=== PATIENT | male | born 1975 | race Caucasian/White ===

== ENCOUNTER 2022-04-28 17:44 | Outpatient (CLI) | payer SELFPAY | END 2022-04-28 17:45 | disposition home or self-care (01) | PROVIDERS: PCP Physician Assistant Medical; Visit Provider Nurse Practitioner Family | DX: L98.9 Disorder of the skin and subcutaneous tissue, unspecified (principal) | CPT/HCPCS: 87070; 87077; 87186 ==

== ENCOUNTER 2022-09-19 14:38 | Emergency (ER) | payer SELFPAY ==
[2022-09-19 14:56] VITALS: BP 139/87; PULSE 80; RESP 16; TEMP 37.4; O2SAT 97; BMI 39.1
--- NOTE | 2022-09-19 15:04 | ED.GENADULT ---
HPI - General Adult General Time Seen by Provider: 15:04 Date Seen: 09/19/22 Chief complaint: Abdominal Pain Stated complaint: Diverticulitis Time Seen by Provider: 09/19/22 14:41 Source: patient and RN notes reviewed Mode of arrival: ambulatory Limitations: no limitations History of Present Illness HPI narrative: Patient is a very pleasant 47-year-old male coming in with concern of diverticulitis. He has symptoms consistent with an episode of diverticulitis he had in 2019. In review of his chart in August of 2020, had a CT scan showing 2 separate focal areas of uncomplicated acute diverticulitis. He had 1 area in the mid transverse colon and 1 in the sigmoid colon. He states he had a colonoscopy after that and they did find pre cancerous polyps. He is scheduled to have another colonoscopy this October. He has had about a week of symptoms where he has had lower abdominal pain some bloating. He has had softer stools that seemed to be changed in color but no blood. He had the same symptoms with his episode in 2019. He has had no fevers or chills. No nausea or vomiting, no change in appetite. He does not have insurance at this time and would like to minimize his cost. He is hoping to get on antibiotics. Related Data Home Medications Medication Instructions Recorded Confirmed amlodipine 5 mg tablet mg PO DAILY 04/25/22 09/19/22 atorvastatin 10 mg tablet mg PO .Bedtime 04/25/22 09/19/22 lisinopril 20 1 tab PO DAILY 04/25/22 09/19/22 mg-hydrochlorothiazide 12.5 mg tablet Previous Rx's Medication Instructions Recorded doxycycline hyclate 100 mg capsule 100 mg PO BID #60 caps 05/02/22 amoxicillin 875 mg-potassium 1 tab PO BID 10 days #20 tabs 09/19/22 clavulanate 125 mg tablet Allergies Allergy/AdvReac Type Severity Reaction Status Date / Time No Known Allergies Allergy Unknown Verified 09/19/22 14:09 Review of Systems Status of ROS: Reports: 6 or more systems reviewed and unremarkable except as noted in History and below [facility] Medical History (Updated 09/19/22 @ 15:25 by Pamella Miller MD) Skin infection Family History (Updated 03/27/22 @ 13:24 by Uriel Pyle) Sister Alcoholism Father Diabetes Paternal Grandmother Liver cancer Lung cancer Aunt Lung cancer Social History (Updated 03/27/22 @ 13:25 by Uriel Pyle) Narrative: alcohol abuse- practicing sobriety- reported 01/31/21 tobacco use Smoking Status: Never smoker Exam Const: Vital Signs, click to edit/add: Vital Signs - 24 hr 09/19/22 14:56 Temperature 99.4 F Pulse Rate [Left P ulse Oximeter] 80 Respiratory Rate 16 Blood Pressure [Le ft Upper Arm] 139/87 Pulse Oximetry 97 Oxygen Delivery Me thod Room Air Documenting provider has reviewed patient's vital signs: yes Common normals: no apparent distress, oriented x3, no limitations, healthy appearing and alert General appearance: cooperative, comfortable and well kempt Nutritional appearance: overweight HENMT: Common normals: normocephalic, head/scalp atraumatic and hearing grossly normal bilaterally Head and scalp: normocephalic and atraumatic Eye: Common normals: PERRL, EOMs intact bilaterally, conjunctivae normal and no scleral icterus Conjunctiva: conjunctiva(e) normal Pupil: PERRL Resp: Common normals: normal respiratory effort, no retractions, no use of accessory muscles and clear to auscultation bilaterally Auscultation: clear to auscultation bilaterally Cardio: Common normals: regular rate, regular rhythm, S1 normal heart sound, S2 normal heart sound, no gallops, no clicks and no murmurs Rate: regular rate Rhythm: regular rhythm Heart sounds: S1 normal and S2 normal GI: Common normals: Normal to inspection, nondistended, normoactive bowel sounds present, soft to palpation, non-tender, no hepatosplenomegaly and no masses Palpation: soft and no hepatosplenomegaly Neuro: Common normals: oriented x3 Sensorium/orientation: alert Psych: Appearance: well kempt Course Course Hospital Course: Reviewed with patient normal workup would be laboratory evaluation and consideration of CT scan. He really feels that this is consistent with diverticulitis. Would like to forego any labs. He reassures me that if he is not improving on antibiotics or has worsening, would definitely follow up. Thus, am inclined to minimize his cost of the visit and treat for diverticulitis. Patient understands diagnosis may not be accurate with basing this on and clinical examination. Vital Signs Vital signs: Initial Vital Signs Temperature 99.4 F 09/19/22 14:56 Temperature Source Temporal Artery Scan 09/19/22 14:56 Pulse Rate 80 09/19/22 14:56 Pulse Rhythm Irregularly Irregular 09/19/22 14:56 Respiratory Rate 16 09/19/22 14:56 Blood Pressure 139/87 09/19/22 14:56 Blood Pressure Mean 104 09/19/22 14:56 Blood Pressure Position Sitting 09/19/22 14:56 Pulse Oximetry 97 09/19/22 14:56 Oxygen Delivery Method 09/19/22 14:56 Vital Signs Temperature 99.4 F 09/19/22 14:56 Pulse Rate 80 09/19/22 14:56 Respiratory Rate 16 09/19/22 14:56 Blood Pressure 139/87 09/19/22 14:56 Pulse Oximetry 97 09/19/22 14:56 Oxygen Delivery Method 09/19/22 14:56 Temperature 99.4 F 09/19/22 14:56 Pulse Rate 80 09/19/22 14:56 Respiratory Rate 16 09/19/22 14:56 Blood Pressure 139/87 09/19/22 14:56 Pulse Oximetry 97 09/19/22 14:56 Oxygen Delivery Method 09/19/22 14:56 Critical Care Time Critical Care Time Critical Care Time: No Discharge Plan Discharge Clinical Impression: Diverticulitis Patient Disposition: Home, Self-Care Condition: Stable Instructions: Diverticulitis (ED), Diverticulitis Diet (ED) Additional Instructions: Start oral antibiotics and take as prescribed. Follow handout for dietary recommendations. Would recommend doing clear liquids for 1-2 days and then advancing diet as tolerated. If you are not improving over the next week,, are worsening at any point with fevers, severe abdominal pain, vomiting or blood in stool, need to be re-evaluated. Activity Level: Activity as Tolerated Prescriptions: New amoxicillin-pot clavulanate 875-125 mg tablet 1 tab PO BID 10 Days Qty: 20 0RF No Action atorvastatin 10 mg tablet PO .Bedtime lisinopril-hydrochlorothiazide 20-12.5 mg tablet 1 tab PO DAILY amlodipine 5 mg tablet PO DAILY Rx Instructions: for high blood pressure doxycycline hyclate 100 mg capsule 100 mg PO BID Qty: 60 2RF Follow Up/Referrals: Cassi Proctor PA-C [Primary Care Provider] - Stand Alone Forms: ufindads Info Instructions
== END 2022-09-19 15:48 | disposition home or self-care (01) ==
LOC: ED 15:43
PROVIDERS: Emergency Provider Family Medicine; PCP Physician Assistant Medical
DX: K57.92 Diverticulitis of intestine, part unspecified, without perforation or abscess without bleeding (principal)
CPT/HCPCS: 99283

== ENCOUNTER 2023-07-04 13:46 | Outpatient (CLI) | payer OTHER, SELFPAY | END 2023-07-04 13:47 | disposition home or self-care (01) | PROVIDERS: PCP Physician Assistant Medical; Referring Provider Physician Assistant Medical; Visit Provider Physician Assistant Medical | DX: Z00.00 Encounter for general adult medical examination without abnormal findings (principal); E78.5 Hyperlipidemia, unspecified; I10 Essential (primary) hypertension; R79.89 Other specified abnormal findings of blood chemistry; Z72.0 Tobacco use | CPT/HCPCS: 80053; 80061 ==

== ENCOUNTER 2023-09-08 12:30 | Outpatient (REF) | payer OTHER, SELFPAY | END 2023-09-08 12:31 | disposition home or self-care (01) | LOC: NFLDREF 12:30 | PROVIDERS: PCP Physician Assistant Medical; Referring Provider Physician Assistant Medical; Visit Provider Family Medicine | DX: L02.32 Furuncle of buttock (principal) | CPT/HCPCS: 87081 ==

== ENCOUNTER 2024-09-08 13:28 | Outpatient (CLI) | payer OTHER, SELFPAY | END 2024-09-08 13:29 | disposition home or self-care (01) | LOC: NFLDREF 09-10 10:22 | PROVIDERS: PCP Physician Assistant Medical; Referring Provider Physician Assistant Medical; Visit Provider Physician Assistant Medical | DX: I10 Essential (primary) hypertension (principal); R79.89 Other specified abnormal findings of blood chemistry; E83.52 Hypercalcemia; E78.5 Hyperlipidemia, unspecified; L30.9 Dermatitis, unspecified; Z11.59 Encounter for screening for other viral diseases; Z11.3 Encounter for screening for infections with a predominantly sexual mode of transmission | CPT/HCPCS: 80053; 80061; 84443; 86703; 86803 ==

== ENCOUNTER 2024-09-23 08:52 | Outpatient (CLI) | payer OTHER, SELFPAY | END 2024-09-23 08:53 | disposition home or self-care (01) | LOC: NFLDREF 09-25 11:48 | PROVIDERS: PCP Physician Assistant Medical; Referring Provider Physician Assistant Medical; Visit Provider Physician Assistant Medical | DX: E83.52 Hypercalcemia (principal) | CPT/HCPCS: 82306; 82310; 83970 ==